=== PATIENT | male | born 1950 | race Caucasian/White ===

== ENCOUNTER → 2016-06-09 | Outpatient (CLI) | payer OTHER, MEDICARE | END | disposition home or self-care (01) | LOC: C.LAB 11:38 | PROVIDERS: ATTEND Urology | DX: R97.20 Elevated prostate specific antigen [PSA] (principal) ==

== ENCOUNTER → 2017-02-09 | Outpatient (CLI) | payer OTHER, MEDICARE ==
[~2017-02-09] MED LIST: GADAVIST IV PRN; PATIENT'S ALLERGY INFO NEEDS ENTERED SCH
--- NOTE | 2017-02-10 17:29 | DIAGNOSTIC IMAGING REPORT ---
PROSTATE MRI COMBO CLINICAL HISTORY: 67 years-old Male presenting with Benign prostatic hyperplasia with urinary obstruction. PSA 6.59 ng/mL. TECHNIQUE: Multisequence, multiplanar MR imaging of the prostate was performed before and after the administration of intravenous contrast. Additional postprocessing was performed on a separate [employer] workstation by the radiologist for 3-D volumetric segmentation of the prostate and contouring of region(s) of interest (KELTON) for targeting. IV contrast: 8.5 mL of Gadavist. COMPARISON: None. FINDINGS: Prostate: The prostate measures 5.0 x 3.7 x 4.6 cm (DynaCAD prostate boundary segmentation volume 44 mL). Moderate changes of benign prostatic hyperplasia. Precontrast T1 weighted imaging demonstrates no evidence of intrinsic T1 hyperintensity to suggest hemorrhage. Seminal vesicles normal. Diffuse heterogeneity of the peripheral zone limits diagnostic sensitivity. The examination is further limited due to nondiagnostic initial image quality of diffusion-weighted imaging necessitated in repeat imaging the following day. As such, slice locations on diffusion weighted imaging from 02/10/2017 did not appropriately aligned with T2-weighted imaging from 02/09/2017. Allowing for this, suspicious lesion(s) described below: Lesion ([employer] KELTON) 1: Location: Left posteromedial peripheral zone at the mid gland. The lesion does not extend across the midline. Size: 9 mm (as measured on ADC for PZ lesion and T2WI for TZ lesion) T2W: 3. Ill-defined heterogeneous hypointense signal intensity. No evidence of extraprostatic extension. DWI: 3. Focal mildly/moderately hypointense on ADC and isointense/mildly hyperintense on high b-value DWI. DCE: Positive. Focal enhancement corresponding to a suspicious finding, earlier or contemporaneous with adjacent normal tissue. PI-RADS: 4. Clinically significant cancer is likely to be present. Bladder: Bladder wall thickening likely indicating chronic outlet obstruction. Bowel: Visualized portion of the rectum normal. Peritoneum: No free fluid in the pelvis. The bilateral testes are retracted into the inguinal canals. Lymph nodes: No lymphadenopathy in the visualized portion of the pelvis. Vasculature: Iliac vessels patent. Abdominal wall: Normal. Osseous structures: Normal bone marrow signal intensity. IMPRESSION: 1. 9 mm lesion in the left posteromedial peripheral zone at the mid gland. PI-RADS 4. Clinically significant cancer is likely to be present. This lesion has been segmented for targeted biopsy. 2. Benign prostatic hyperplasia. Electronically signed by: Bertin Hi M.D. 02/10/2017 5:27 PM Dictated Date/Time: 02/10/2017 3:03 PM
== END | disposition home or self-care (01) ==
LOC: C.MRIBC 08:25
PROVIDERS: ATTEND Urology
DX: N40.1 Benign prostatic hyperplasia with lower urinary tract symptoms (principal); N42.9 Disorder of prostate, unspecified

== ENCOUNTER → 2017-02-25 | Outpatient (CLI) | payer OTHER, MEDICARE | END | disposition home or self-care (01) | LOC: C.PATHSPEC 12:46 | PROVIDERS: ATTEND Urology | DX: C61 Malignant neoplasm of prostate (principal) ==

== ENCOUNTER 2017-04-21 06:21 | Inpatient (IN) | payer OTHER, MEDICARE ==
[2017-04-06 08:14] VITALS: BMI 27.0
--- NOTE | 2017-04-06 09:29 | DIAGNOSTIC IMAGING REPORT ---
TWO VIEW CHEST CLINICAL HISTORY: Preoperative examination. FINDINGS: PA and lateral chest radiographs are obtained. No prior studies are available for comparison at the time of dictation. The cardiomediastinal silhouette is unremarkable. The lungs and pleural spaces are clear. There is no pneumothorax. The bony thorax appears intact. IMPRESSION: No active disease in the chest. Electronically signed by: Michael Menjivar M.D. 04/06/2017 9:28 AM Dictated Date/Time: 04/06/2017 9:27 AM
[2017-04-06 10:06] LABS: BASO % 0.5 %; BASO ABS # 0.03 K/uL (0-0.2); EOS % 2.5 %; EOS ABS # 0.15 K/uL (0-0.5); HEMATOCRIT 47.4 % (42-52); HEMOGLOBIN 16.5 g/dL (14.0-18.0); IG# 0.01 K/uL (0.00-0.02); LYMPH % 21.3 %; LYMPH ABS # 1.29 K/uL (1.2-3.4); MEAN CELL VOLUME 89.1 fL (80-100); MEAN CORPUSCULAR HGB CONC 34.8 g/dl (32-36); MEAN PLATELET VOLUME 11.5 fL (7.4-10.4); MONO % 11.2 %; MONO ABS # 0.68 K/uL (0.11-0.59); NEUT % 64.3 %; PLATELET COUNT 207 K/uL (130-400); RED CELL DISTRIBUTION WIDTH CV 13.2 % (11.5-14.5); RED CELL DISTRIBUTION WIDTH SD 43.1 fL (36.4-46.3); WHITE BLOOD COUNT 6.06 K/uL (4.8-10.8)
[2017-04-06 11:32] LABS: CALCIUM 9.3 mg/dl (8.5-10.1); CREATININE 1.05 mg/dl (0.60-1.40); POTASSIUM 4.1 mmol/L (3.5-5.1)
[~2017-04-21] VITALS: Ht 180.3 cm; Wt 90.6 kg
[2017-04-21] VITALS (9 sets, daily range): BP systolic 102–173; BP diastolic 53–95; PULSE 67–99; TEMP 36.6–36.8; O2SAT 93–99; Ht 180.3 cm; Wt 90.6 kg
[~2017-04-21 06:21] MED LIST changes: +CEFAZOLIN 2000MG IV PUSH 15 ML IV SCH; -GADAVIST IV PRN; +HEPARIN SOD 5000 UNIT/0.5 ML CARP SQ SCH; +LACTATED RINGER'S 1000ML 1,000 ML IV SCH; -PATIENT'S ALLERGY INFO NEEDS ENTERED SCH
[2017-04-21] MEDS ORDERED: BUPIVACAINE 0.5 % 5 MG/1 ML MPF 30ML VIAL ONE (07:22)
[2017-04-21] MEDS ORDERED: ONDANSETRON INJ 2 MG/ML 2 ML VIAL ONE (07:24)
[2017-04-21] MEDS ORDERED: LIDOCAINE HCL 2% 2 ML VIAL (20MG/ML) ONE (07:24)
[2017-04-21] MEDS ORDERED: FENTANYL CITRATE INJ 50 MCG/1 ML 2 ML VIAL ONE (07:24)
[2017-04-21] MEDS ORDERED: ROCURONIUM BROMIDE 10 MG/ML 5 ML VIAL IV ONE ×2 (07:24→09:02)
[2017-04-21] MEDS ORDERED: PROPOFOL IV EMULSION 10 MG/ML 20 ML VIAL IV ONE (07:24)
[2017-04-21] MEDS ORDERED: MIDAZOLAM HCL 1 MG/ML 2ML VIAL ONE (07:24)
[2017-04-21] MEDS ORDERED: DEXAMETHASONE SOD INJ 4 MG/ML VIAL ONE (07:24)
[2017-04-21] MEDS ORDERED: EpHEDrine SULFATE INJ 50 MG/ML AMP IV PRN (07:30)
[2017-04-21] MEDS ORDERED: ONDANSETRON INJ 2 MG/ML 2 ML VIAL IV PRN ×2 (07:30→11:30)
[2017-04-21] MEDS ORDERED: PROMETHAZINE HCL INJ 6.25 MG in SODIUM CHLORIDE 0.9% 50ML 50 ML IV PRN (07:30)
[2017-04-21] MEDS ORDERED: ATROPINE SULFATE 0.1 MG/ML 5ML SYR IV PRN (07:30)
[2017-04-21] MEDS ORDERED: HYDROmorphone INJ 1 MG/ML SYR IV PRN ×2 (07:30→11:30)
[2017-04-21] MEDS ORDERED: SODIUM CHLORIDE 0.9% INJ 10 ML VIAL ONE (07:35)
--- NOTE | 2017-04-21 08:06 | History & Physical Bridge Note ---
H&P Re-Evaluation Bridge Note: I have examined the patient, reviewed the History & Physical and in the interval since the performance of the History & Physical I have noted the following changes of clinical significance: No changes noted
[2017-04-21] MEDS ORDERED: BELLADONNA/OPIUM SUPP 60 MG SUPP PR ONE ×2 (08:45→11:05)
[2017-04-21] MEDS ORDERED: HYDROmorphone INJ 2 MG/ML SYR/VIAL ONE (08:51)
[2017-04-21] MEDS ORDERED: EpHEDrine SULFATE 50MG/5ML SYR ONE (09:09)
[2017-04-21] MEDS ORDERED: GLYCOPYRROLATE INJ 0.2 MG/ML VIAL ONE (10:59)
[2017-04-21] MEDS ORDERED: NEOSTIGMINE METHYLSULFATE 5 MG/5 ML SYR ONE (10:59)
[2017-04-21] MEDS ORDERED: FLOSEAL HEMOSTATIC MATRIX 10ML TOP ONE (11:04)
[2017-04-21] MEDS ORDERED: OXYC7.5T62 PO (11:30)
[2017-04-21] MEDS ORDERED: KETOROLAC TROMETHAMINE 15 MG/ML VIAL IV PRN (11:30)
[2017-04-21] MEDS ORDERED: OXYCODONE/ACETAMINOPHEN 7.5-325 TAB PO PRN (11:30)
[2017-04-21] MEDS ORDERED: CEFAZOLIN IV 2,000 MG in DEXTROSE 5% 50ML 50 ML IV SCH (11:30)
[2017-04-21] MEDS ORDERED: OXYBUTYNIN CHLORIDE 5 MG TAB PO PRN (11:30)
[2017-04-21] MEDS ORDERED: DTR5 PO (11:31)
[2017-04-21] MEDS ORDERED: CLC100 PO (11:31)
[2017-04-21] MEDS ORDERED: CIPR1TAB10 PO (11:31)
--- NOTE | 2017-04-21 11:33 | Discharge Instructions ---
Discharge Instructions Date of Service Apr 21, 2017. Admission Reason for Admission: Prostate Cancer Discharge Discharge Diagnosis / Problem: Prostate Cancer Discharge Goals Goal(s): Decrease discomfort, Improve disease control, Therapeutic intervention Activity Recommendations Activity Limitations: per Instructions/Follow-up section Shower/Bathe: tomorrow 1. Do not lift >15lbs x 6 weeks. 2. No heavy exercise x 6 weeks. You may engage in light activity such as walking and stairs as tolerated. 3. No sexual intercourse until cleared by Dr. Pardo. 4. Do not drive x [address] while taking narcotics. 5. You have been prescribed the antibiotic Ciprofloxacin. Start this medication 2 days prior to aguayo catheter removal. Finish all of the antibiotic you have been prescribed. 6. Immediately call our office at [phone] if your catheter is removed for any reason. 7. Follow-up as scheduled. Please call our office at [phone] if you need to reschedule for any reason. . . Current Hospital Diet Patient's current hospital diet: Clear Liquid Diet Discharge Diet Recommended Diet: Regular Diet Procedures Procedures Performed: Laparoscopic Prostatectomy with removal of Pelvic Lymph Nodes, DaVinci Robot Assist Pending Studies Studies pending at discharge: yes List of pending studies: prostate and lymph node pathology Medical Emergencies . Who to Call and When: Medical Emergencies: If at any time you feel your situation is an emergency, please call 911 immediately. . Non-Emergent Contact Non-Emergency issues call your: Urologist Call Non-Emergent contact if: temperature is above 101.5, your pain is not controlled, your pain is worsening, your pain is unusual for you, your pain is concerning you, wound has increased drainage, wound has increased redness, wound has increased pain, you have any medication questions . . "Provider Documentation" section prepared by Judit Chung. . VTE Core Measure Inpt VTE Proph given/why not?: Unfractionated heparin SQ, SCD's [place] Drug Monitoring Program Search Results: patient reviewed within database, no issues identified
--- NOTE | 2017-04-21 11:44 | [facility] Operative Report ---
Operative Report Operative Date Apr 21, 2017. Pre-Operative Diagnosis Prostate cancer Post-Operative Diagnosis Prostate cancer Procedure(s) Performed Laparoscopic radical prostatectomy with bilateral pelvic lymphadenectomy Surgeon Dr. Pardo Manager Molecular Surgeon(s) Judit MILLER Estimated Blood Loss 100 ML Findings as per dictation Specimens Permanent Specimens: A: Periprostatic Fat B: Right Pelvic Lymph Node C: Left Pelvic Lymph Node D:Prostate and [place] Vesicles Drains aguayo Anesthesia Type General Complication(s) none Disposition Recovery Room / PACU Indications prostate cancer Description of Procedure The patient was identified in the preoperative holding area, appropriate informed consents were reviewed and completed, and he was transported to the operating suite. Subcutaneous heparin was administered in the pre-operative holding area. Upon arrival in the operating suite, he received appropriate antibiotics and general anesthesia. He was positioned in dorsal lithotomy, a B& O suppository was inserted after digital rectal exam, and he was prepped and draped in standard fashion. A Aguayo catheter was inserted in the sterile field. A Veress needle was passed per umbilicus with uniform insufflation of the abdomen to 15mmHg. He was placed in steep Trendelenburg position. A periumbilical incision was then made to accommodate a 12mm Visiport with 10mm 0degree laparoscope. Inspection of the abdomen was carried out, and there was no evidence of traumatic entry or injury secondary to the Veress needle. After confirming a clear anterior abdominal wall, ports were subsequently placed in standard robotic prostatectomy fashion without incident. To begin the robotic portion of the case, the left lateral aspect of the sigmoid was mobilized off of the left pelvic side wall to allow the pouch of Mazin to be appropriately visualized. The medial umbilical ligaments were then controlled with bipolar electrocautery just inferior to the umbilicus. Following cauterization, they were divided utilizing monopolar cautery. A peritoneal incision was carried from this location to the medial aspect of the internal inguinal rings bilaterally with care to avoid opening through the ring. This incision was concluded when the vas deferens was reached. Dissection of the bladder and prostate off of the posterior aspect of the pubic arch was completed allowing full visualization of the prostate. The fat overlying the prostate was removed en bloc and passed off the table as a specimen labeled "periprostatic fat". The endopelvic fascia was cleared during this portion of the procedure, and subsequently opened - first on the right and then the left. The incision through the endopelvic fascia began near the prostate-bladder junction and was carried to the apex with extreme care to preserve all lateral levator musculature as well as the periurethral musculature and sphincter complex. The puboprostatic ligaments were thinned slightly bilaterally before placing a 0-Vicryl figure of 8 stitch around the DVC. The lymph node dissection was then conducted. External iliac vessles were identified on the pelvic side wall. The packet of fat and lymphatic tissue that resides just under the iliac vein was elevated and off of the vein with a split and roll technique. The packet was dissected laterally to the circumflex vein and distally to the obturator nerve which was preserved. The proximal aspect of the packet was carried towards the bifurcation of the iliac vessels. A combination of monopolar and bipolar cautery were used to assist with control. Clips were placed at the proximal and distal aspects of the packet prior to transection. After completing the dissection on both sides, the packets were collected and passed off of the table as specimens labeled "pelvic lymph nodes". My attention then returned to the prostate, with identification of the bladder neck aided by gentle traction on the Aguayo catheter and lateral to medial pressure at the presumed level of the bladder neck with the robotic instruments. An anterior cystotomy was made, the Aguayo balloon deflated and the catheter guided through the incision to allow anterior retraction. I attempted to preserve maximal bladder neck musculature as I circumferentially dissected around the bladder neck. After incision through the posterior aspect of the mucosa, the dissection was carried through detrusor muscle until the bilateral ampullae of the vasa were identified. After identifying the vasa, I developed a pedicle packet on each side to help flatten the dissection and placed Weck clips across the most proximal and superficial aspects of these packets adjacent to the bladder. The packets were then divided allowing easier visualization of the vasa and posterior aspect of the prostate. Vasa were each dissected before being transected. These were used to further aide in anterior retraction as the bilateral seminal vesicals were dissected with very judicious use of bipolar electrocautery. Following SV dissection, a posterior plane behind the prostate was developed - splitting Denonvilliers's fascia. This dissection was carried as far as possible towards the apex as well as far as possible laterally. An incision in the lateral prostatic fascia was then made bilaterally to facilitate control of the vascular pedicles. The pedicles were each controlled with a series of Weck clips. The neurovascular bundles were identified with an aggressive nerve sparing on the right and a less aggressive dissection on the left secondary to his cancer location. The apical attachments of the prostate were remaining at that stage. The DVC was divided with bipolar electrocautery. Nickolas-prostatic tissue incised with sharp dissection and monopolar cautery. Maximal urethral length was preserved before dividing the urethra sharply. The prostate was entirely freed at that point, and collected in an EndoCatch bag before being moved out of the field of vision. Hemostasis was confirmed and anastomosis of the bladder and urethra was completed utilizing a double armed V- Lock stitch. A new Aguayo catheter was inserted and the anastomosis tested with irrigation. There was no evidence of leak. FloSeal coagulant was placed around the anastomosis. The robot was undocked, the specimen extracted through expansion of the nickolas- umbilical camera port. The fascia was closed with a series of 0-Vicryl figure of 8 stitches. The right university administrative assistant port was closed in two layers - with a figure of 8 0-Vicryl to reapproximate the fascia followed by 4-0 Monocryl to close the skin. Monocryl was used to close all other skin incisions. All wounds were dressed with paper taper and gauze dressings. The case was concluded and the patient taken to the PACU in stable condition. Ms. Judit Chung assisted me throughout the surgery - beginning with positioning, then assisting with port placement, the laparoscopic portion of the case, and ultimately closure. I attest to the content of the Intraoperative Record and any orders documented therein. Any exceptions are noted below.
[2017-04-21] MEDS ORDERED: LABETALOL HCL IV 5 MG/ML 20ML IV ONE ×2 (11:55→12:03)
[2017-04-21] MEDS: FENTANYL CITRATE INJ 50 MCG/1 ML 2 ML VIAL IV PRN ×4 (12:02→12:18)
[2017-04-21 12:20] LABS: HEMATOCRIT 45.5 % (42-52); HEMOGLOBIN 15.7 g/dL (14.0-18.0); MEAN CELL VOLUME 89.6 fL (80-100); MEAN CORPUSCULAR HEMOGLOBIN 30.9 pg (25-34); MEAN PLATELET VOLUME 11.1 fL (7.4-10.4); PLATELET COUNT 202 K/uL (130-400); RED CELL DISTRIBUTION WIDTH SD 42.4 fL (36.4-46.3); WHITE BLOOD COUNT 13.34 K/uL (4.8-10.8)
[2017-04-21 12:30] LABS: MEAN CORPUSCULAR HGB CONC 34.5 g/dl (32-36)
[2017-04-21] MEDS ORDERED: KETOROLAC TROMETHAMINE 30 MG/ML VIAL ONE (12:39)
[2017-04-21] MEDS ORDERED: ACETAMINOPHEN 1000 MG/100 ML IV IV ONE (12:40)
[2017-04-21] MEDS ORDERED: KETOROLAC TROMETHAMINE 30 MG/ML VIAL IV STA (12:40)
--- NOTE | 2017-04-21 12:42 | Anesthesiology Progress Note ---
Anesthesia Post Op Note Date & Time Apr 21, 2017 at 12:42 Vital Signs Pain Intensity: 5 Vital Signs Past 12 Hours Date Time Temp Pulse Resp B/P (MAP) Pulse Ox O2 Delivery O2 Flow Rate FiO2 04/21/17 12:30 36.3 84 14 120/81 97 Nasal Cannula 2 04/21/17 12:25 78 14 131/88 95 Nasal Cannula 2 04/21/17 12:20 80 7 141/92 96 Nasal Cannula 2 04/21/17 12:15 92 7 150/88 91 Nasal Cannula 2 04/21/17 12:10 83 14 156/100 100 Nasal Cannula 2 04/21/17 12:00 90 16 178/105 100 Oxymask 8 04/21/17 11:51 36.1 96 20 177/103 100 Oxymask 8 04/21/17 07:00 36.6 95 20 173/95 (121) 96 Room Air Notes Mental Status: alert / awake / arousable, participated in evaluation Pt Amnestic to Procedure: Yes Nausea / Vomiting: adequately controlled Pain: adequately controlled Airway Patency, RR, SpO2: stable & adequate BP & HR: stable & adequate Hydration State: stable & adequate Anesthetic Complications: no major complications apparent
[2017-04-21] MEDS ORDERED: ACETAMINOPHEN IV 1,000 MG in EMPTY BAG 0 ML IV ONE (12:45)
[2017-04-21 12:46] LABS: CALCIUM 8.5 mg/dl (8.5-10.1); CREATININE 1.27 mg/dl (0.60-1.40); POTASSIUM 3.6 mmol/L (3.5-5.1)
[2017-04-21] MEDS: LACTATED RINGER'S 1000ML 1,000 ML IV SCH ×2 (13:56→19:43)
[2017-04-21 14:01] LABS: PTT PATIENT 24.7 SECONDS (21.0-31.0)
[2017-04-21] MEDS: CEFAZOLIN IV 2,000 MG in SYRINGE 0 ML IV SCH (15:42)
[2017-04-21] MEDS: ACETAMINOPHEN 500 MG TAB PO SCH (18:22)
[2017-04-21] MEDS: HEPARIN SOD 5000 UNIT/0.5 ML CARP SQ SCH (19:47)
[2017-04-21] MEDS: DOCUSATE SODIUM 100 MG CAP PO SCH (19:47)
[2017-04-22] MEDS: CEFAZOLIN IV 2,000 MG in SYRINGE 0 ML IV SCH ×2 (00:04→08:00)
[2017-04-22] MEDS: ACETAMINOPHEN 500 MG TAB PO SCH ×2 (00:04→06:52)
[2017-04-22] MEDS: LACTATED RINGER'S 1000ML 1,000 ML IV SCH ×2 (02:18→07:21)
[2017-04-22 03:25] VITALS: BP 112/56; PULSE 73; TEMP 36.8; O2SAT 97
[2017-04-22] MEDS: HEPARIN SOD 5000 UNIT/0.5 ML CARP SQ SCH (07:08)
--- NOTE | 2017-04-22 07:13 | Progress Note ---
Subjective Date of Service: Apr 22, 2017. Subjective Pt evaluation today including: conversation w/ patient, physical exam, lab review Voiding: aguayo catheter in place Did very well overnight OOB no narcotic use urine cleared no flatus or BM yet Review of Systems Constitutional: No see HPI, No fever, No chills, No sweats, No weight loss, No weakness, No fatigue, No problem reported Cardiac: No see HPI, No chest pain, No orthopnea, No PND, No edema, No claudication, No palpitations, No problem reported Abdomen: + pain (incisional) Male : + problem reported Neurologic: No see HPI, No memory loss, No paralysis, No weakness, No numbness/ tingling, No vertigo, No balance problems, No problem reported Psychiatric: No see HPI, No depression symptoms, No anhedonism, No anxiety, No insomnia, No substance abuse, No problem reported Heme: No see HPI, No abnormal bleeding/bruising, No clotting problems, No swollen lymph nodes, No night sweats, No problem reported Endo: No see HPI, No fatigue, No excessive thirst, No excessive urination, No problem reported Skin: + problem reported (psoriasis - unchanged) Objective Vital Signs Date Time Temp Pulse Resp B/P (MAP) Pulse Ox O2 Delivery O2 Flow Rate FiO2 04/22/17 03:25 36.8 73 16 112/56 (74) 97 Room Air 04/21/17 23:30 96 Room Air 04/21/17 23:15 36.7 67 16 117/53 (74) 96 Room Air 04/21/17 20:51 36.6 75 18 132/63 (86) 98 Room Air 04/21/17 16:14 36.7 76 18 103/53 (70) 99 Room Air 04/21/17 15:35 Room Air 04/21/17 15:14 36.8 72 16 102/62 (75) 95 Room Air 04/21/17 14:30 93 Room Air 04/21/17 14:02 72 16 109/69 (82) 97 Nasal Cannula 2.0 04/21/17 13:30 36.7 99 18 118/77 (91) 98 Nasal Cannula 2.0 04/21/17 13:05 Nasal Cannula 2.0 04/21/17 13:00 Nasal Cannula 04/21/17 12:45 88 16 123/90 97 Nasal Cannula 2 2/6/18 12:30 36.3 84 14 120/81 97 Nasal Cannula 2 04/21/17 12:25 78 14 131/88 95 Nasal Cannula 2 04/21/17 12:20 80 7 141/92 96 Nasal Cannula 2 04/21/17 12:15 92 7 150/88 91 Nasal Cannula 2 04/21/17 12:10 83 14 156/100 100 Nasal Cannula 2 04/21/17 12:00 90 16 178/105 100 Oxymask 8 04/21/17 11:51 36.1 96 20 177/103 100 Oxymask 8 Physical Exam General Appearance: no apparent distress Eyes: normal inspection ENT: hearing grossly normal Neck: no adenopathy Respiratory/Chest: no respiratory distress, no accessory muscle use Abdomen: soft (incisions appropriate - non-distended, appropriately tender) Extremities: no pedal edema Neurologic/Psychiatric: alert, normal mood/affect, oriented x 3 Skin: warm/dry Laboratory Results Last 24 Hours Test 04/21/17 12:03 04/21/17 13:42 04/22/17 04:44 White Blood Count 13.34 K/uL Red Blood Count 5.08 M/uL Hemoglobin 15.7 g/dL Hematocrit 45.5 % Mean Corpuscular Volume 89.6 fL Mean Corpuscular Hemoglobin 30.9 pg Mean Corpuscular Hemoglobin Concent 34.5 g/dl RDW Standard Deviation 42.4 fL RDW Coefficient of Variation 13.0 % Platelet Count 202 K/uL Mean Platelet Volume 11.1 fL Sodium Level 138 mmol/L Potassium Level 3.6 mmol/L Chloride Level 103 mmol/L Carbon Dioxide Level 29 mmol/L Anion Gap 6.0 mmol/L Blood Urea Nitrogen 15 mg/dl Creatinine 1.27 mg/dl Est Creatinine Clear Calc Drug Dose 65.0 ml/min Estimated GFR () 67.3 Estimated GFR (Non- 58.1 BUN/Creatinine Ratio 12.0 Random Glucose 159 mg/dl Calcium Level 8.5 mg/dl Chemistry Specimen Hemolysis Prothrombin Time 10.5 SECONDS Prothromb Time International Ratio 1.0 Activated Partial Thromboplast Time 24.7 SECONDS Partial Thromboplastin Ratio 1.0 Assessment and Plan POD#1 s.p RALP - plan for d/c home today - home with aguayo for 1 week
[2017-04-22 07:48] LABS: EOS % 0.1 %; EOS ABS # 0.01 K/uL (0-0.5); HEMATOCRIT 41.4 % (42-52); HEMOGLOBIN 14.1 g/dL (14.0-18.0); IG# 0.04 K/uL (0.00-0.02); LYMPH % 8.7 %; LYMPH ABS # 1.14 K/uL (1.2-3.4); MEAN CELL VOLUME 89.6 fL (80-100); MEAN CORPUSCULAR HEMOGLOBIN 30.5 pg (25-34); MEAN CORPUSCULAR HGB CONC 34.1 g/dl (32-36); MEAN PLATELET VOLUME 11.3 fL (7.4-10.4); MONO ABS # 1.44 K/uL (0.11-0.59); NEUT % 79.9 %; NEUT ABS # 10.51 K/uL (1.4-6.5); PLATELET COUNT 206 K/uL (130-400); RED CELL DISTRIBUTION WIDTH CV 13.3 % (11.5-14.5); RED CELL DISTRIBUTION WIDTH SD 43.4 fL (36.4-46.3); WHITE BLOOD COUNT 13.14 K/uL (4.8-10.8)
[2017-04-22 08:02] VITALS: BP 133/70; PULSE 68; TEMP 36.8; O2SAT 99
[2017-04-22 08:24] VITALS: BP 133/70; PULSE 68; TEMP 36.8; O2SAT 99
[2017-04-22] MEDS: DOCUSATE SODIUM 100 MG CAP PO SCH (08:33)
[2017-04-22 08:40] LABS: CALCIUM 8.9 mg/dl (8.5-10.1); CREATININE 1.09 mg/dl (0.60-1.40); POTASSIUM 4.8 mmol/L (3.5-5.1)
--- NOTE | 2017-04-22 18:19 | Discharge Summary ---
Discharge Summary Date of Service Apr 22, 2017. Admission Date/Reason Apr 21, 2017 at 07:15 Prostate Cancer. Discharge Date/Disposition Apr 22, 2017 Home Diagnosis Principal Diagnosis: Prostate Ca Procedure(s) Performed Robotic prostatectomy with lymph node dissection Medication Reconciliation New Medications: Ciprofloxacin Hcl (Cipro) 500 Mg Tab 500 MG PO BID, #10 TAB Start 2 days prior to aguayo catheter removal. Docusate Sodium (Docusate Sodium) 100 Mg Cap 100 MG PO BID PRN for Constipation, #60 CAP 0 Refills Oxybutynin Chloride (Oxybutynin Chloride) 5 Mg Tab 5 MG PO Q8 PRN for BLADDER SPASMS, #20 TAB 0 Refills Oxycodone/Acetaminophen 7.5MG/325MG (Endocet 7.5MG/325MG) 1 Tab Tab 1-2 TAB PO Q4H PRN for severe pain (pain scale 7-10), #20 TAB 0 Refills Admission Physical Exam As per Admitting History & Physical. Hospital Course Admitted for robotic prostatectomy, details of the procedure as dictated previously in the operative report, however, in summary, he tolerated the procedure well. He was transferred to the floor post operatively and progressed well overnight. On the morning of post operative day #1, he was discharged in stable condition. Discharge Instructions Please refer to the electronic Patient Visit Report (Discharge Instructions) for additional information.
== END 2017-04-22 09:05 | disposition home or self-care (01) | DRG 708 ==
LOC: C.ACU 06:21 → C.3E 07:15 → ENRESERV 12:25
PROVIDERS: ADMIT Urology; ATTEND Urology
PROC: 0VT04ZZ Resection of Prostate, Percutaneous Endoscopic Approach (ICD-10-PCS; principal; 2017-04-21 08:30)
DX: C61 Malignant neoplasm of prostate (principal); Z79.82 Long term (current) use of aspirin; Z88.5 Allergy status to narcotic agent; Z80.0 Family history of malignant neoplasm of digestive organs; Z82.49 Family history of ischemic heart disease and other diseases of the circulatory system; Z80.3 Family history of malignant neoplasm of breast

== ENCOUNTER → 2017-06-03 | Outpatient (CLI) | payer OTHER, MEDICARE ==
[~2017-06-03] MED LIST changes: -CEFAZOLIN 2000MG IV PUSH 15 ML IV SCH; +CIPR1TAB10 PO; +CLC100 PO; +DTR5 PO; -HEPARIN SOD 5000 UNIT/0.5 ML CARP SQ SCH; -LACTATED RINGER'S 1000ML 1,000 ML IV SCH; +OXYC7.5T62 PO
== END | disposition home or self-care (01) ==
LOC: C.LAB 08:45
PROVIDERS: ATTEND Urology
DX: C61 Malignant neoplasm of prostate (principal)